=== PATIENT | female | born 1975 | race Caucasian/White ===

== ENCOUNTER 2018-05-05 22:38 | Emergency (ER) | payer OTHER ==
[~2018-05-05] VITALS: Ht 154.9 cm; Wt 47.6 kg
[~2018-05-05 22:38] MED LIST: NOHOMEMEDICATIONS; NORCO 5-325 TA1 EACH PO; TYLENOL325 MG PO
[2018-05-05] MEDS ORDERED: DOXYCYCLINE 10100 MG PO (23:34)
[2018-05-05] MEDS ORDERED: DIFLUCAN150 MG PO (23:46)
[2018-05-06 00:08] VITALS: BP 103/59
== END 2018-05-06 00:14 | disposition home or self-care (01) ==
LOC: M.ERS 22:38
DX: R21 Rash and other nonspecific skin eruption (principal); T63.481A Toxic effect of venom of other arthropod, accidental (unintentional), initial encounter; Y92.89 Other specified places as the place of occurrence of the external cause